=== PATIENT | female | born 1980 | race Caucasian/White ===

== ENCOUNTER 2017-06-27 11:35 | Day surgery (SDC) | payer BC ==
[~2017-06-27 11:35] MED LIST: CEFAZOLIN 1 GM INJ; CEFAZOLIN 2 GM/50 ML (PMX) 50 ML IVPB; SOD CHLORIDE 0.9% 1,000 ML IV
[2017-06-27] MEDS ORDERED: MIDAZOLAM 1 MG/ML 2 ML INJ (14:58)
[2017-06-27] MEDS ORDERED: PROPOFOL 20 ML (14:58)
[2017-06-27] MEDS ORDERED: LIDOCAINE 2% (SDV) 5 ML INJ (14:58)
[2017-06-27] MEDS ORDERED: DEXAMETHASONE 4 MG/ML 1 ML INJ (15:12)
[2017-06-27] MEDS ORDERED: FAMOTIDINE 20 MG INJ (15:12)
[2017-06-27] MEDS ORDERED: ONDANSETRON 4 MG INJ (15:12)
[2017-06-27] MEDS ORDERED: KETOROLAC 30 MG INJ (15:24)
[2017-06-27] MEDS ORDERED: FENTAnyl 50 MCG/ML VIAL (15:26)
[2017-06-27] MEDS ORDERED: HYDROCODONE/APAP (7.5/325) TAB PO (16:00)
== END 2017-06-27 17:25 | disposition home or self-care (01) ==
LOC: SDS 11:35
DX: D05.11 Intraductal carcinoma in situ of right breast (principal)
CPT/HCPCS: 19301; 84703